=== PATIENT | female | born 1950 | race Caucasian/White ===

== ENCOUNTER 2018-11-07 08:47 | Day surgery (SDC) | payer MEDICARE ==
[~2018-11-07] VITALS: Ht 149.9 cm; Wt 51.7 kg
[~2018-11-07 08:47] MED LIST: ACET65TA OR; ATEN25TA PO; ATEN50TA2 OR; ATOR1TAB21 PO; BABY81CH OR; FLON0.05; GABA-843 PO; HYDR12CA PO; HYDR25TA6 OR; LEVO25TA5 PO; LIDOCAINE 2% INJ 100 MG/5 ML SDV (FOR ANES.) As Ordered ONE; LR 1,000 ML IV SCH; METF500T13 PO; ONDANSETRON 4MG/2ML VIAL (J2405) As Ordered ONE; PROPOFOL 200 MG/20 ML VIAL As Ordered ONE; ROCURONIUM BROMIDE 50 MG/5 ML VIAL As Ordered ONE; SIMV20TA2 OR; TYLE650T30 PO; ZITH250T OR; dexameTHASONE 4 MG/ML 1ML VIAL (J1100) As Ordered ONE
[2018-11-07] MEDS ORDERED: ceFAZolin 2 GM/D5W 50 ML IV BAG (J0690 PER 500MG) As Ordered ONE (09:08)
[2018-11-07] MEDS ORDERED: fentaNYL 100 MCG/2 ML INJECTION (J3010) As Ordered ONE (09:31)
[2018-11-07] MEDS ORDERED: MIDAZOLAM INJ 2 MG/2 ML VIAL (J2250) As Ordered ONE (09:32)
[2018-11-07] MEDS ORDERED: VASOPRESSIN INJ 20 UNITS/ML VIAL As Ordered ONE (11:29)
[2018-11-07] MEDS ORDERED: ePHEDrine SULFATE 25 MG/5 ML(5MG/ML) SYRINGE As Ordered ONE (12:20)
[2018-11-07] MEDS ORDERED: PROPOFOL 200 MG/20 ML VIAL As Ordered ONE (12:20)
[2018-11-07] MEDS ORDERED: LR 1,000 ML IV SCH ×2 (14:00)
[2018-11-07] MEDS ORDERED: NORCO, ANEXSIA 5/325MG TABLET (HYDROcodone/ACETAMINOPHEN) PO PRN (14:00)
[2018-11-07] MEDS ORDERED: fentaNYL 100 MCG/2 ML INJECTION (J3010) IV PRN (14:00)
[2018-11-07] MEDS ORDERED: ONDANSETRON 4MG/2ML VIAL (J2405) IV PRN (14:00)
[2018-11-07] MEDS ORDERED: IBUPROFEN 600 MG TAB PO PRN (14:00)
--- NOTE | 2018-11-07 14:26 | RO ---
DATE OF PROCEDURE: 11/07/2018 PREPROCEDURE DIAGNOSIS: Symptomatic prolapse, mixed incontinence with hypermobility. POSTPROCEDURE DIAGNOSIS: Symptomatic prolapse, mixed incontinence with hypermobility. PROCEDURE: Sacrospinous suspension with anterior repair mini mid urethral sling placement and cystourethroscopy. The patient also had a small enterocele we corrected sort of in the midst of the anterior repair. She did not subsequently need further posterior repair. SURGEON: Dr. Clare Mccoy MATE SHIP: None. ANESTHESIA: Spinal. BRIEF DESCRIPTION OF PROCEDURE AND FINDINGS: Angelique was brought to the operating room where sufficient spinal anesthesia was induced and she was prepped, draped and positioned in the usual sterile fashion with the bladder emptied and then the vaginal cuff grasped with Allis clamps. We injected with diluted vasopressin and then made a transverse incision over the area of previous vaginal cuff. We then dissected a little anteriorly and posteriorly to free the vaginal epithelium from the underlying tissues. There was a fairly large cystocele and it was obstructing our access for the sacrospinous, so we went ahead and dissected anteriorly making a midline incision in the anterior vaginal wall and doing pursestring stitches to correct the cystocele and along with this we corrected a very small enterocele. We then dissected posteriorly and made our way to the right spine and dissected over the sacrospinous ligament for access for the sacrospinous suspension. We were readily able to place two anchors with two #2-[address] these so that we had four #2-0 PDS when we had finished placing the anchors to use for the sacrospinous suspension. One of these got tangled up with the others and we ended up removing it, but we had three for the suspension and placed them at the cuff after we had checked with the Allis for appropriate placement. Having brought those sutures out through the vaginal epithelium, we then trimmed some of the anterior vaginal epithelium to sort of smooth over where we had already corrected that cystocele in that separate incision. Then by trimming this we could incorporate that to the closure of the vaginal cuff, which we did with #2-9 Vicryl, and then we brought down the anchor PDS sutures, just a single throw each, and then we scoped the patient. We saw normal jets of urine from both ureters and we saw good correction of that cystocele. We also did a sort of 360 degrees inspection of the bladder epithelium and saw no polyps, no lesions, no hyperemia, no Hardeep's lesions, and no stones, etc. Having completed the cystourethroscopy with normal findings, we went ahead and put down the rest of the throws on those #2-0 PDS and trimmed those off along with trimming off the stitches for the vaginal closure. With this apical support and correction of the cystocele, we decided not to do further rectocele repair. The patient did have some pain preoperatively from atrophic changes of the vagina and pain with use of a pessary. We did not want to over correct for that fear because that was just pain walking around and so I was concerned if we over tightened we may put tension on those tissues, so we had a good correction and stopped there. Then, readied the area for the mini mid urethral sling using Solex anteriorly, about a cm cephalad from the urethral meatus. We injected with diluted vasopressin. We made a midline incision with 15 blade and then used the Strully scissors to dissect laterally the tracts for the trocars. Then using the anatomic landmarks we placed the Solex in the normal fashion. Then again scoped the patient, confirming lack of injury to the bladder or to the urethra with the Solex placement. Then we closed the incision for the Solex placement as well, correcting a small urethrocele along with that. Having closed all of our wounds and completed the supports, we also did do a rectal exam to confirm absence of rectal injury and then the case was completed. Estimated blood loss for the procedure was maybe 30 mL. Fluid replacement was crystalloid. Complications: None. Condition and Disposition: Angelique tolerated the procedure well and was recovering in the recovery room in good condition.
[2018-11-07] MEDS: NORCO, ANEXSIA 5/325MG TABLET (HYDROcodone/ACETAMINOPHEN) PO PRN ×2 (14:30→16:55)
[2018-11-07 18:34] VITALS: BP 157/65
== END 2018-11-07 18:30 | disposition home or self-care (01) ==
LOC: M SDC 08:47
PROVIDERS: ATTEND Obstetrics & Gynecology
DX: N81.89 Other female genital prolapse (principal); N39.46 Mixed incontinence; N36.41 Hypermobility of urethra; E11.9 Type 2 diabetes mellitus without complications; I10 Essential (primary) hypertension; E03.9 Hypothyroidism, unspecified; E78.5 Hyperlipidemia, unspecified; Z79.84 Long term (current) use of oral hypoglycemic drugs; Z79.899 Other long term (current) drug therapy; M79.7 Fibromyalgia
CPT/HCPCS: 57240; 57282; 57288; 88302; C1713; C1771; J0690; J2250; J3010

== ENCOUNTER 2019-12-13 11:05 | Emergency (ER) | payer MEDICARE ==
[~2019-12-13] VITALS: Ht 149.9 cm; Wt 54.5 kg
[~2019-12-13 11:05] MED LIST changes: -LIDOCAINE 2% INJ 100 MG/5 ML SDV (FOR ANES.) As Ordered ONE; -LR 1,000 ML IV SCH; -ONDANSETRON 4MG/2ML VIAL (J2405) As Ordered ONE; -PROPOFOL 200 MG/20 ML VIAL As Ordered ONE; -ROCURONIUM BROMIDE 50 MG/5 ML VIAL As Ordered ONE; -dexameTHASONE 4 MG/ML 1ML VIAL (J1100) As Ordered ONE
[2019-12-13] MEDS ORDERED: ACET-683 PO (11:20)
[2019-12-13] MEDS ORDERED: PRED10TA2 (11:20)
[2019-12-13 11:34] LABS: BASO % 0.2 % (0.0-1.0); EOS % 0.2 % (0.0-3.0); HEMATOCRIT 36.5 % (36.0-47.0); HEMOGLOBIN 12.9 g/dl (12.0-15.5); LYMPH # 1.7 10^3/uL (1.5-5.0); LYMPH % 10.9 % (24.0-44.0); MEAN CORPUSCULAR HEMOGLOBIN 31.2 pg (27.0-33.0); MEAN CORPUSCULAR HGB CONC 35.3 g/dl (32.0-36.5); MEAN CORPUSCULAR VOLUME 88.2 fl (80.0-96.0); MONO # 0.9 10^3/uL (0.0-0.8); MONO % 5.7 % (0.0-5.0); NEUTROPHILS % 82.4 % (36.0-66.0); PLATELET COUNT, AUTOMATED 307 10^3/uL (150-450); RED BLOOD COUNT 4.14 10^6/uL (4.00-5.40); WHITE BLOOD COUNT 15.8 10^3/uL (4.0-10.0)
[2019-12-13] MEDS ORDERED: ISOVUE-370 76% 100ML VIAL As Ordered ONE (11:40)
[2019-12-13] MEDS ORDERED: ONDANSETRON 4MG/2ML VIAL IV ONE (11:45)
[2019-12-13] MEDS ORDERED: KETOROLAC 30 MG/ML 1ML VIAL IV ONE (11:45)
[2019-12-13] MEDS ORDERED: NS 1,000 ML IV ONE (11:45)
[2019-12-13 11:59] LABS: ALBUMIN 3.9 GM/DL (3.2-5.2); BILIRUBIN,DIRECT 0.2 MG/DL (0.0-0.2); BILIRUBIN,TOTAL 0.6 MG/DL (0.2-1.0)
[2019-12-13] MEDS ORDERED: MORPHINE 2 MG/ML 1ML VIAL (J2270) IV ONE (12:45)
[2019-12-13] MEDS ORDERED: hydroCHLOROthiazide 12.5 MG CAPSULE PO ONE (12:45)
[2019-12-13] MEDS ORDERED: atenoloL 25 MG TAB PO ONE (12:45)
[2019-12-13 13:26] VITALS: BP 150/66
[2019-12-13] MEDS ORDERED: TYLETAB14 PO (13:56)
--- NOTE | 2019-12-29 08:16 | REP ---
Clinical: Right lower quadrant pain. Technique: Axial contrast enhanced images from the lung bases to the pubic symphysis using 100 ml Isovue 370 intravenous contrast material with coronal and sagittal re-formations. Comparison: 01/30/2014. Findings: Lung bases are clear. Visualized heart and pericardium normal. Liver, spleen, pancreas, bilateral adrenal glands and kidneys are normal. Evidence of prior cholecystectomy noted. The enteric system is without obstruction or acute inflammatory process. Normal terminal ileum, cecum and appendix are identified in the right lower quadrant. Few scattered colonic and sigmoid diverticula noted without acute diverticulitis. Pelvis demonstrates normal bladder and evidence of prior hysterectomy. No ascites. No free air. No adenopathy. Abdominal aorta without aneurysm or dissection. Musculoskeletal structures demonstrate age-related degenerative changes without focal osseous abnormality. Impression: 1. No acute abdominopelvic pathology appreciated. 2. Few scattered colonic diverticula without acute diverticulitis. Electronically Signed by Yoshi Jones MD 12/29/2019 08:08 A
== END 2019-12-13 14:10 | disposition home or self-care (01) ==
LOC: M ED 11:05
DX: R10.31 Right lower quadrant pain (principal); R11.2 Nausea with vomiting, unspecified; K57.30 Diverticulosis of large intestine without perforation or abscess without bleeding; I10 Essential (primary) hypertension; M54.30 Sciatica, unspecified side; E03.9 Hypothyroidism, unspecified; E78.5 Hyperlipidemia, unspecified; Z87.19 Personal history of other diseases of the digestive system; Z79.899 Other long term (current) drug therapy; Z79.52 Long term (current) use of systemic steroids
CPT/HCPCS: 74177; 80047; 80076; 81001; 83690; 85025; 87086; 96361; 96374; 96375; 99284; J1885; J2270; J2405; Q9967

== ENCOUNTER 2019-12-15 07:17 | Emergency (ER) | payer MEDICARE ==
[~2019-12-15] VITALS: Ht 149.9 cm; Wt 54.5 kg
[~2019-12-15 07:17] MED LIST changes: +ACET-683 PO; +PRED10TA2; +TYLETAB14 PO
[2019-12-15] MEDS ORDERED: KETOROLAC 30 MG/ML 1ML VIAL IV ONE (08:00)
[2019-12-15 09:46] VITALS: BP 167/80
== END 2019-12-15 09:46 | disposition home or self-care (01) ==
LOC: M ED 07:17 → EDBD 07:17 → M ED 09:46
DX: M54.31 Sciatica, right side (principal); I10 Essential (primary) hypertension; Z87.19 Personal history of other diseases of the digestive system; E03.9 Hypothyroidism, unspecified; Z79.899 Other long term (current) drug therapy; Z79.52 Long term (current) use of systemic steroids
CPT/HCPCS: 96374; 99284; J1885

== ENCOUNTER → 2020-04-06 | Outpatient (REF) | payer MEDICARE | LOC: M LAB REF 19:01 | PROVIDERS: ATTEND Dermatology | DX: D04.4 Carcinoma in situ of skin of scalp and neck (principal); L57.0 Actinic keratosis ==

== ENCOUNTER 2021-11-10 06:55 | Inpatient (IN) | payer BC, MEDICARE, OTHER ==
[~2021-11-10] VITALS: Ht 147.3 cm; Wt 53.4 kg
[~2021-11-10 06:55] MED LIST changes: +GABA-282 PO; -GABA-843 PO
[2021-11-10 08:05] LABS: BASO % 0.2 % (0.0-1.0); EOS % 0.1 % (0.0-3.0); HEMATOCRIT 40.8 % (36.0-47.0); HEMOGLOBIN 13.9 g/dl (12.0-15.5); LYMPH # 0.8 10^3/uL (1.5-5.0); LYMPH % 6.7 % (24.0-44.0); MEAN CORPUSCULAR HEMOGLOBIN 31.2 pg (27.0-33.0); MEAN CORPUSCULAR HGB CONC 34.1 g/dl (32.0-36.5); MEAN CORPUSCULAR VOLUME 91.7 fl (80.0-96.0); MONO # 0.6 10^3/uL (0.0-0.8); MONO % 4.7 % (2.0-8.0); NEUTROPHILS % 87.7 % (36.0-66.0); PLATELET COUNT, AUTOMATED 261 10^3/uL (150-450); RED BLOOD COUNT 4.45 10^6/uL (4.00-5.40); WHITE BLOOD COUNT 12.5 10^3/uL (4.0-10.0)
[2021-11-10] MEDS ORDERED: atenoloL 25 MG TAB PO ONE (08:15)
[2021-11-10] MEDS ORDERED: hydroCHLOROthiazide 12.5 MG CAPSULE PO ONE (08:15)
[2021-11-10] MEDS ORDERED: ATOR40TA75 PO (08:26)
[2021-11-10] MEDS ORDERED: D3 S20002 PO (08:28)
[2021-11-10] MEDS ORDERED: HOME MED LIST COMPLETE! XX SCH (08:30)
[2021-11-10 08:38] LABS: CK-MB VALUE MASS 1.2 NG/ML (<3.6); MB/CK RELATIVE INDEX 1.2 (< OR =4)
[2021-11-10 08:47] LABS: BLOOD UREA NITROGEN 13 MG/DL (7-18); CALCIUM LEVEL 9.5 MG/DL (8.8-10.2); CARBON DIOXIDE LEVEL 23 MEQ/L (21-32); CHLORIDE LEVEL 107 MEQ/L (98-107); CREATININE FOR GFR 0.74 MG/DL (0.55-1.30); FREE T4 1.02 NG/DL (0.76-1.46); GLOMERULAR FILTRATION RATE > 60.0 (>39); GLUCOSE, FASTING 171 MG/DL (70-100); MAGNESIUM LEVEL 2.1 MG/DL (1.8-2.4); POTASSIUM SERUM 4.3 MEQ/L (3.5-5.1); SODIUM LEVEL 139 MEQ/L (136-145)
[2021-11-10] MEDS: atenoloL 25 MG TAB PO SCH (09:00)
[2021-11-10 09:12] LABS: RSV AMPLIFICATION NEGATIVE (NEGATIVE)
[2021-11-10] MEDS ORDERED: ACETAMINOPHEN TAB 650MG DOSE (2X325MG) PO ONE (10:25)
[2021-11-10 12:51] LABS: INR 0.98; PARTIAL THROMBOPLASTIN TIME 26.9 SECONDS (25.9-37.0); PROTHROMBIN TIME 13.4 SECONDS (12.7-14.5)
[2021-11-10 12:52] LABS: ALBUMIN 3.9 GM/DL (3.2-5.2); BILIRUBIN,DIRECT 0.2 MG/DL (0.0-0.2); BILIRUBIN,TOTAL 0.7 MG/DL (0.2-1.0); TOTAL PROTEIN 6.9 GM/DL (6.4-8.2)
[2021-11-10 12:54] LABS: D-DIMER QUANT 1174.98 ng/ml (<500)
[2021-11-10 13:08] VITALS: BP 158/72
[2021-11-10 13:23] LABS: C REACTIVE PROTEIN QUANTITATIV 0.51 MG/DL (0.00-0.30)
[2021-11-10 13:45] VITALS: O2SAT 97
[2021-11-10] MEDS: VITAMIN D 1,000 INTERNATIONAL UNITS TABLET PO SCH (14:05)
[2021-11-10] MEDS: ASPIRIN 81MG ENTERIC TABLET PO SCH (14:05)
[2021-11-10] MEDS: ENOXAPARIN 40MG/0.4ML SYRINGE (J1650 PER 10MG) SC SCH (14:06)
[2021-11-10] MEDS: LEVOTHYROXINE 25MCG TABLET (0.025MG) PO SCH (15:30)
[2021-11-10] MEDS ORDERED: REMDESIVIR 200 MG in NS 250 ML IV ONE (16:00)
[2021-11-10] MEDS ORDERED: SODIUM CHLORIDE 0.9% INJ 10 ML SYR IV ONE (18:00)
[2021-11-10 19:25] VITALS: BP 144/65
[2021-11-10] MEDS ORDERED: ACETAMINOPHEN TAB 650MG DOSE (2X325MG) PO PRN (20:15)
[2021-11-10] MEDS ORDERED: traMADol 50 MG TAB PO PRN (20:15)
[2021-11-10 20:43] VITALS: O2SAT 96
[2021-11-10] MEDS ORDERED: GABAPENTIN 300 MG CAP PO SCH (21:00)
[2021-11-10] MEDS ORDERED: ATORVASTATIN 20 MG TAB PO SCH (21:00)
[2021-11-11] VITALS: O2SAT 97
[2021-11-11 04:00] VITALS: BP 145/67; O2SAT 97
[2021-11-11 05:34] LABS: BASO % 0.3 % (0.0-1.0); EOS % 0.2 % (0.0-3.0); HEMATOCRIT 35.9 % (36.0-47.0); HEMOGLOBIN 12.4 g/dl (12.0-15.5); LYMPH # 1.8 10^3/uL (1.5-5.0); LYMPH % 30.7 % (24.0-44.0); MEAN CORPUSCULAR HGB CONC 34.5 g/dl (32.0-36.5); MEAN CORPUSCULAR VOLUME 89.8 fl (80.0-96.0); MONO # 0.7 10^3/uL (0.0-0.8); MONO % 11.7 % (2.0-8.0); NEUTROPHILS # 3.3 10^3/uL (1.5-8.5); NEUTROPHILS % 56.9 % (36.0-66.0); PLATELET COUNT, AUTOMATED 261 10^3/uL (150-450); WHITE BLOOD COUNT 5.7 10^3/uL (4.0-10.0)
[2021-11-11 06:02] LABS: ALBUMIN 3.5 GM/DL (3.2-5.2); ALT/SGPT 16 U/L (12-78); BILIRUBIN,DIRECT 0.2 MG/DL (0.0-0.2); BILIRUBIN,TOTAL 0.6 MG/DL (0.2-1.0); BLOOD UREA NITROGEN 15 MG/DL (7-18); CARBON DIOXIDE LEVEL 25 MEQ/L (21-32); CHLORIDE LEVEL 106 MEQ/L (98-107); CREATININE FOR GFR 0.83 MG/DL (0.55-1.30); GLOMERULAR FILTRATION RATE > 60.0 (>39); GLUCOSE, FASTING 120 MG/DL (70-100); SODIUM LEVEL 139 MEQ/L (136-145); TOTAL PROTEIN 6.5 GM/DL (6.4-8.2)
[2021-11-11] MEDS: LEVOTHYROXINE 25MCG TABLET (0.025MG) PO SCH (06:24)
[2021-11-11] MEDS: ASPIRIN 81MG ENTERIC TABLET PO SCH (10:13)
[2021-11-11] MEDS: ENOXAPARIN 40MG/0.4ML SYRINGE (J1650 PER 10MG) SC SCH (10:13)
[2021-11-11] MEDS: VITAMIN D 1,000 INTERNATIONAL UNITS TABLET PO SCH (10:14)
[2021-11-11 10:15] VITALS: BP 148/66
[2021-11-11] MEDS: atenoloL 25 MG TAB PO SCH (10:15)
[2021-11-11 10:20] VITALS: BP_SYST 145; BP_SYST 154; BP_SYST 158; BP_DIAS 67; BP_DIAS 74
[2021-11-11] MEDS ORDERED: REMDESIVIR 100 MG in NS 250 ML IV SCH (16:00)
[2021-11-11] MEDS ORDERED: SODIUM CHLORIDE 0.9% INJ 10 ML SYR IV SCH (17:00)
== END 2021-11-11 14:14 | disposition home or self-care (01) | DRG 179 ==
LOC: M ED 06:55 → M ED INP 10:58 → ENRESERV 12:15 → M 4MAIN 13:00
PROVIDERS: ADMIT Internal Medicine; ATTEND Internal Medicine
PROC: XW033E5 Introduction of Remdesivir Anti-infective into Peripheral Vein, Percutaneous Approach, New Technology Group 5 (ICD-10-PCS; principal; 2021-11-10)
DX: U07.1 COVID-19 (principal); R55 Syncope and collapse; E78.5 Hyperlipidemia, unspecified; I10 Essential (primary) hypertension; M54.2 Cervicalgia; Z79.899 Other long term (current) drug therapy; S02.2XXA Fracture of nasal bones, initial encounter for closed fracture; Y93.89 Activity, other specified; W18.30XA Fall on same level, unspecified, initial encounter; Y92.012 Bathroom of single-family (private) house as the place of occurrence of the external cause; Y99.8 Other external cause status; E03.9 Hypothyroidism, unspecified; E55.9 Vitamin D deficiency, unspecified; K52.9 Noninfective gastroenteritis and colitis, unspecified